=== PATIENT | male | born 1955 | race Caucasian/White ===

== ENCOUNTER 2017-03-10 03:18 | Emergency (ER) | payer OTHER ==
[2017-03-10] MEDS ORDERED: LIDOCAINE 2%/EPINEPHRINE INJ 20 ML VIAL INJ ONE (03:41)
--- NOTE | 2017-03-10 04:19 | ER Document Report ---
ED General - General Chief Complaint: Head Injury Stated Complaint: FALL/WELL CHECK Notes: Patient is a 61-year-old male presents with complaint of a fall. Family says that he's usually supposed to walk with either a walker or assistance from family. He got of his bed on his own to go to the bathroom and slipped falling hitting his head. He has a small scalp laceration left side which has continued to bleed despite dressing changes since the morning. He is on Plavix. He is on aspirin. He has no other complaint is time. He denies any other injuries or pain. He has a history of anoxic brain injury in the past. TRAVEL OUTSIDE OF THE [place] IN LAST 30 DAYS: No - Related Data Allergies/Adverse Reactions: No Known Allergies Allergy (Verified 09/04/16 15:49) Past Medical History - Social History Smoking Status: Unknown if Ever Smoked Frequency of alcohol use: None Drug Abuse: None Family History: Reviewed & Not Pertinent, CAD, DM - Past Medical History Cardiac Medical History: Reports: Hx Atrial Fibrillation, Hx Congestive Heart Failure, Hx Coronary Artery Disease, Hx Hypercholesterolemia, Hx Hypertension Neurological Medical History: Denies: Hx Seizures Endocrine Medical History: Reports: Hx Diabetes Mellitus Type 1, Hx Diabetes Mellitus Type 2 Psychiatric Medical History: Reports: Hx Depression Past Surgical History: Reports: Hx Cardiac Surgery - Stent placement, Hx Orthopedic Surgery - left ankle fx repair - Immunizations Hx Diphtheria, Pertussis, Tetanus Vaccination: Yes Review of Systems - Review of Systems Notes: My Normal Review Basic REVIEW OF SYSTEMS: CONSTITUTIONAL : Denies fever, chills, or sweats. Denies recent illness. EENT: Denies eye, ear, throat, or mouth pain or symptoms. Denies nasal or sinus congestion. CARDIOVASCULAR: Denies chest pain. RESPIRATORY: Denies cough, cold, or chest congestion. Denies shortness of breath, difficulty breathing, or wheezing. GASTROINTESTINAL: Denies abdominal pain. Denies nausea, vomiting, or diarrhea. Denies constipation. Last BM: MUSCULOSKELETAL: Denies neck or back pain or joint pain or swelling. SKIN: Denies rash or skin lesions. HEMATOLOGIC : On aspirin and Plavix. NEUROLOGICAL: Denies altered mental status or loss of consciousness. Denies headache. Denies weakness or paralysis or loss of use of either side. Denies problems with gait or speech. Denies sensory or motor loss. PSYCHIATRIC: Denies anxiety or stress or depression. ALL OTHER SYSTEMS REVIEWED AND NEGATIVE. Physical Exam - Vital signs Vitals: Resp 15 03/10/17 03:41 - Notes Notes: General Appearance: Well nourished, alert, cooperative, no acute distress, no obvious discomfort. Well-appearing. Vitals: reviewed, See vital signs table. Head: Very small scalp laceration with continuous slow venous ooze over the left parietal scalp. Eyes: PERRL, EOMI, Conjuctiva clear Mouth: No decreasd moisture Neck: Supple, no neck tenderness, Lungs: No wheezing, No rales, No rhonci, No accessory muscle use, good air exchange bilaterally. Heart: Normal rate, Regular rythm, No murmur, no rub Extremities: strength 5/5 in all extremities, good pulses in all extremities, no swelling or tenderness in the extremities, no edema. Skin: warm, dry, appropriate color, no rash Neuro: speech clear, oriented x 3, normal affect, responds appropriately to questions. Cranial nerves II through XII are intact. Course - Vital Signs Vital signs: Temp Pulse Resp BP Pulse Ox 10 L 131/76 H 98 03/10/17 05:02 03/10/17 05:02 03/10/17 05:02 - Transfer of Care Notes: 03/10/17 05:47 The wound was cleaned with peroxide. Was irrigated. It was injected with lidocaine with epi. I then placed a piece of Surgifoam over the wound and covered it with compression dressing. I left this on for one hour. I removed the dressing and the wound is no longer bleeding. I then re-cleaned the wound and applied Dermabond to it. Patient continues not have any bleeding. A dressing was placed over and patient was discharged home. CT scan of the head and neck was negative. Patient otherwise is acting appropriately and does not complain of any pain. Patient and family encouraged to bring her back to ER immediately if has recurrent bleeding, fevers, vomiting, or is not acting inappropriately. Patient and family agree with plan and he will be discharged home. Dictation of this chart was performed using voice recognition software; therefore, there may be some unintended grammatical errors. Procedures - Laceration/Wound Repair Head Wound length (cm): 1 Wound's Depth, Shape: Superficial Laceration pre-procedure: Other - hydrogen peroxide Anesthetic type: Other - 2% lidocaine with epi Volume Anesthetic (mLs): 3 Wound explored: Clean Irrigated w/ Saline (mLs): 30 - Hydrogen peroxide Wound Repaired With: Dermabond Complications: No Discharge - Discharge Clinical Impression: Laceration Minor head injury Qualifiers: Encounter type: initial encounter Qualified Code(s): S00.90XA - Unspecified superficial injury of unspecified part of head, initial encounter Condition: Good Disposition: HOME, SELF-CARE Additional Instructions: Please return to [facility] ER immediately if Mr. Pollock has any redness or swelling around the wound, fevers, or feels unwell. You can remove the dressing in [address]
[2017-03-10 06:21] VITALS: BP 144/84
== END 2017-03-10 06:21 | disposition home or self-care (01) ==
LOC: ER 03:18
DX: S01.01XA Laceration without foreign body of scalp, initial encounter (principal); W01.0XXA Fall on same level from slipping, tripping and stumbling without subsequent striking against object, initial encounter; Y93.89 Activity, other specified; Y92.009 Unspecified place in unspecified non-institutional (private) residence as the place of occurrence of the external cause; E11.9 Type 2 diabetes mellitus without complications; I25.10 Atherosclerotic heart disease of native coronary artery without angina pectoris; I10 Essential (primary) hypertension; I48.91 Unspecified atrial fibrillation; Z79.02 Long term (current) use of antithrombotics/antiplatelets; Z79.82 Long term (current) use of aspirin; Z98.61 Coronary angioplasty status
CPT/HCPCS: 99283; 70450; 72125; J3490